=== PATIENT | male | born 1970 | race Caucasian/White ===

== ENCOUNTER 2017-06-29 12:23 | Emergency (ER) | payer BC ==
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
[2017-06-29] MEDS ORDERED: NORCO 5/325 MG PO ONE (13:57)
[2017-06-29] MEDS ORDERED: NORCO 5/325 MG ONE (14:03)
[2017-06-29 14:24] VITALS: BP 120/77; PULSE 78; O2SAT 95
--- NOTE | 2017-06-29 20:54 | XRAY ---
Indication: Postreduction humeral fracture. Single view of the left humerus demonstrates stable humeral shaft fracture again with bayonet apposition/alignment, soft tissue swelling, osteopenia, shoulder degenerative changes, and partially visualized forearm fracture. No new findings.
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
== END 2017-06-29 14:25 | disposition home or self-care (01) ==
LOC: ED 12:23
DX: S42.322A Displaced transverse fracture of shaft of humerus, left arm, initial encounter for closed fracture (principal); W00.0XXA Fall on same level due to ice and snow, initial encounter
CPT/HCPCS: 73060; 99283; A9270-GY